=== PATIENT | male | born 1965 | race Caucasian/White ===

== ENCOUNTER 2017-03-11 16:17 | Emergency (ER) | payer OTHER ==
[~2017-03-11] VITALS: Ht 188 cm; Wt 95.2 kg
--- NOTE | ~2017-03-11 | CT4 ---
[facility] A Service of [facility] RADIOLOGY TEXT RESULTS PATIENT: IHSAN FORTUNE LOCATION: [facility] : 61 UNIT #: [id number] AGE: [address]: Elton Nieves MD SEX: M ORDER DR: [id number] [facility] [address] [place], [place] [address] [id number] MR#: [id number] Acc #: [id number] NAME: IHSAN FORTUNE : 1965 SEX: M STUDY DATE/TIME: 03/11/2017 19:07 UNIT: [facility] ROOM: STUDY DESCRIPTION: CT Abd and Pelv Wo Cont Attending Physician: Elton Nieves M.D. Ordering Physician: Elton Nieves M.D. Primary Care Physician: Primary Care Physician No MEDICAL IMAGING REPORT This report is preliminary unless electronic signature is present EXAM CT abdomen and pelvis without contrast 03/11/2017 HISTORY 52-year-old male with left flank pain beginning today. COMPARISON CT abdomen and pelvis 07/16/2016. TECHNIQUE Helical scan performed through the abdomen and pelvis without oral or IV contrast. Coronal and sagittal reformatted images. This CT examination was performed with one or more of the following radiation dose reduction techniques: automatic exposure control, adjustment of mA and/or kV according to patient size, and iterative reconstruction. FINDINGS Visualized lung bases are unremarkable. The liver, spleen, pancreas, gallbladder, both adrenal glands are within normal limits. There is a 4 mm distal left ureteral stone a few centimeters proximal to the left ureterovesical junction producing mild to moderate left-sided hydroureteronephrosis. There is a 3 mm nonobstructing right intrarenal stone. Abdominal aorta normal in course and caliber. Small bowel is unremarkable without obstruction. Appendix is normal. Uncomplicated descending colonic diverticulosis. Colon otherwise unremarkable. No free fluid or free air. Urinary bladder, prostate gland are within normal limits. No free pelvic fluid. No acute bony abnormality. IMPRESSION 1. 4 mm distal left ureteral stone a few centimeters proximal to the left [facility] A Service of [facility] RADIOLOGY TEXT RESULTS PATIENT: IHSAN FORTUNE LOCATION: [facility] : 61 UNIT #: [id number] AGE: [address]: Elton Nieves MD SEX: M ORDER DR: UVJ producing moderate left-sided hydroureteronephrosis. 2. 3 mm nonobstructing right intrarenal stone. 3. Normal appendix. 4. Uncomplicated descending colonic diverticulosis. Dictated by... Juve Maloney M.D. THIS IS AN ELECTRONICALLY VERIFIED REPORT Juve Maloney M.D. at 03/12/2017 2:41 PM MAEVE/oswaldo TD: 03/12/2017 07:44 JOB #: [id number] MEDICAL IMAGING REPORT Page 1 of 1 COPY
[2017-03-11 16:30] LABS: URINE SOURCE CLEAN CATCH
[2017-03-11 16:34] LABS: URINE APPEARANCE CLEAR; URINE BILIRUBIN NEG (NEG); URINE BLOOD 2+ (NEG); URINE COLOR YELLOW; URINE GLUCOSE NEG (NEG); URINE KETONE NEG (NEG); URINE LEUKOCYTE ESTERASE NEG (NEG); URINE NITRATE NEG (NEG); URINE PROTEIN TRACE (NEG); URINE UROBILINOGEN 0.2 MG/DL (NEG)
[2017-03-11 16:38] LABS: CULTURE INDICATED? YES; URBCS1 AUWI 0-2 /[HPF] (0-2); URINE BACTERIA AUWI NEG (NEGATIVE); URINE SQUAMOUS EPITHELIAL CELL NONE SEEN /[HPF]
[2017-03-11 17:35] LABS: BASOPHIL# 0.1 X10e3 (0-0.3); BASOPHIL% 0.9 % (0-2.5); EOSINOPHIL# 0.2 X10e3 (0-0.7); EOSINOPHIL% 1.2 % (0.0-7.0); HEMATOCRIT 48.8 % (38.0-50.0); HEMOGLOBIN 16.1 gm/dL (13.0-16.0); LYMPHOCYTE% 23.6 % (17.0-45.0); MEAN CELL VOLUME 86.7 FL (83-96); MEAN CORPUSCULAR HEMOGLOBIN 28.7 PG (28-34); MEAN CORPUSCULAR HGB CONC 33.1 g/dL (30-36); MEAN PLATELET VOLUME 8.7 FL (6.5-11.5); MONOCYTE# 0.9 X10e3 (0-1.0); MONOCYTE% 7.2 % (3.0-12.0); NEUTROPHIL# 8.5 X10e3 (1.5-7.1); NEUTROPHIL% 67.1 % (40-75); PLATELET COUNT 270 X10e3 (140-420); RED BLOOD COUNT 5.63 X10e (3.90-5.60); WHITE BLOOD COUNT 12.7 X10e3 (4.0-10.5)
[2017-03-11 17:37] LABS: DIFF IND NO
[2017-03-11 18:14] LABS: BUN/CREATININE RATIO 10.62; CALCIUM SERUM 9.7 mg/dL (8.4-10.2); CREATININE SERUM 1.6 mg/dL (0.6-1.4); GLOM FILT RATE Estimated 48.2 mL/min (>60); POTASSIUM 4.3 mmol/L (3.5-5.1)
== END 2017-03-11 20:24 | disposition home or self-care (01) ==
LOC: CED 16:17
PROVIDERS: Emergency Medicine
DX: N20.1 Calculus of ureter (principal); F17.200 Nicotine dependence, unspecified, uncomplicated
CPT/HCPCS: 74176; 80048; 81003; 85025; 87086; 96361; 96374; 96375; 99284; J2405; J3010